=== PATIENT | male | born 1995 | race Caucasian/White ===

== ENCOUNTER 2017-04-04 15:59 | Emergency (ER) | payer OTHER ==
[2017-04-04 16:12] VITALS: BP 147/74; PULSE 70; RESP 16; TEMP 98.2; O2SAT 97
--- NOTE | 2017-04-04 16:25 | EDPHY ---
H & P Stated Complaint: etoh last night ran head into a ceiling overhang/lac/no loc now with mcdonald and Time Seen by Provider: 04/04/17 16:24 - Personal History Current Tetanus/Diphtheria Vaccine: Yes - Medical/Surgical History Hx Asthma: No Hx Chronic Respiratory Disease: No Hx Diabetes: No Hx Cardiac Disease: No Hx Renal Disease: No Hx Cirrhosis: No Hx Alcoholism: No Hx HIV/AIDS: No Hx Splenectomy or Spleen Trauma: No Other PMH: sinus surgery - Social History Smoking Status: Never smoked Constitutional: Initial Vital Signs Temperature (C) 36.8 C 04/04/17 16:09 Heart Rate 70 04/04/17 16:09 Respiratory Rate 16 04/04/17 16:09 Blood Pressure 147/74 H 04/04/17 16:09 O2 Sat (%) 97 04/04/17 16:09 O2 Delivery Mode Room Air Allergies/Adverse Reactions: No Known Allergies Allergy (Unverified 04/04/17 16:08) Home Medications: Medication Instructions Recorded Cefuroxime 04/04/17 Gentamycin 04/04/17 Medical Decision Making ED Course/Re-evaluation: CHIEF COMPLAINT: Head injury HISTORY OF PRESENT ILLNESS: The patient is a 22 y/o male complaining of a head injury last night. After consuming alcohol at a [employer] he was walking down some stairs when he hit his head on the ceiling overhang. He immediately fell on his back but did not lose consciousness. He remember the entire event. Today he was nauseous but did not vomit. He had 2 prior concussions with similar symptoms and was concerned that he suffered another concussion. No chest pain, shortness of breath, abdominal pain, urinary or bowel complaints, fever. REVIEW OF SYSTEMS: A 10 point review of systems was performed and is negative with the exception of the elements mentioned in the history of present illness. PHYSICAL EXAM: HR, BP, O2 Sat, RR. Temp noted General Appearance: Alert, well hydrated, appropriate, and non-toxic appearing. Head: 3cm linear horizontal laceration that has begun to heal. No scalp tenderness or obvious injury Eyes: Pupils equal, round, reactive to light and accommodation, EOMI, no trauma , no injection. Ears: Clear bilaterally, no perforation, normal landmarks Nose: Minor erythema to bridge of nose, no rhinorrhea, clear. Throat: Mucus membranes moist. Neck: Supple, nontender, no lymphadenopathy. Respiratory: No retractions, no distress, no wheezes, and no accessory muscle use. Lungs are clear to auscultation bilaterally. Cardiovascular: Regular rate and rhythm, no murmurs, rubs, or gallops. Good capillary refill all extremities. Gastrointestinal: Abdomen is soft, nontender, non-distended, no masses, no rebound, no guarding, no peritoneal signs. Musculoskeletal: Normal active ROM of all extremities, atraumatic. Neurological: Alert, appropriate, and interactive. Non-focal neuro Skin: No rashes, good turgor, no nodules on palpation. Past medical history: Denies Past surgical history: Sinus surgery Family history: Noncontributory Social history: Friend at bedside, student at DIFFERENTIAL DIAGNOSIS: The differential diagnosis for the patient's head injury included but was not limited to concussion, skull fracture, intra-parenchymal contusion, subarachnoid , subdural and epidural hematoma. MEDICAL DECISION MAKING: The patient is a 22 y/o male presenting with a head injury last night after hitting the ceiling overhang while walking down stairs. He has a normal neuro exam. The laceration he has on his forehead is already healing and he can breath through both nares in his nose even though there is minor trauma to the bridge. He does not meet [place] CT criteria. Reassessed patient and discussed plan for discharge as he does not need suture repair or a head CT. Return precautions provided; patient is comfortable with this plan. Departure - Departure Disposition: Home, Routine, Self-Care Clinical Impression: Head injury Qualifiers: Encounter type: initial encounter Qualified Code(s): S09.90XA - Unspecified injury of head, initial encounter Condition: Good Instructions: Concussion (ED), Head Injury (ED) Additional Instructions: 1. Follow-up with your primary doctor within 72 hours. 2. Return to the Emergency Department for severe headache, vomiting, vision changes, confusion, fever or other concerns. Referrals: NONE *PRIMARY CARE P,. [Primary Care Provider] - As per Instructions Report Scribed for: Delano Dodd Report Scribed by: Lola Hdz Date of Report: 04/04/17 Time of Report: 16:28
== END 2017-04-04 16:37 | disposition home or self-care (01) ==
DX: S09.90XA Unspecified injury of head, initial encounter (principal); W18.09XA Striking against other object with subsequent fall, initial encounter; Y99.8 Other external cause status; Y93.01 Activity, walking, marching and hiking